=== PATIENT | female | born 1985 | race American Indian/Alaskan Native ===

== ENCOUNTER 2017-11-04 09:37 | Emergency (ER) | payer OTHER ==
[2017-11-04 09:48] VITALS: BP 148/85
[2017-11-04 10:34] LABS: Basophils % (Auto) 0.5 % (0.0-1.8); Eosinophils % (Auto) 0.3 % (0.0-4.3); Hematocrit 38.5 % (30.3-42.9); Hemoglobin 12.8 gm/dl (10.1-14.3); Lymphocytes # (Auto) 0.3 K/mm3 (1.2-5.4); Mean Corpuscular HGB Conc 33 % (30-34); Mean Corpuscular Hemoglobin 26 pg (28-32); Mean Corpuscular Volume 79 fl (79-97); Monocytes # (Auto) 0.3 K/mm3 (0.0-0.8); Monocytes % (Auto) 5.2 % (0.0-7.3); Platelet Count 220 K/mm3 (140-440); Red Blood Count 4.88 M/mm3 (3.65-5.03); Red Cell Distribution Width 16.1 % (13.2-15.2)
[2017-11-04 10:41] LABS: Alanine Aminotransferase 11 units/L (7-56); Albumin 3.9 g/dL (3.9-5); BUN/Creatinine Ratio 17; Blood Urea Nitrogen 10 mg/dL (7-17); Calcium 8.9 mg/dL (8.4-10.2); Hemolysis Index 13; Lipase 18 units/L (13-60)
[2017-11-04 11:22] LABS: HCG Qualitative,Urine Negative (Negative)
[2017-11-04 11:25] LABS: Bilirubin,Urine NEG (Negative); Blood,Urine NEG (Negative); Color,Urine Yellow (Yellow); Mucus,Urine FEW /HPF; Protein,Urine <15 mg/dL mg/dL (Negative); Urobilinogen,Urine < 2.0 mg/dL (<2.0)
[2017-11-04] MEDS ORDERED: ZOFRAN ODT PO ONE (12:20)
[2017-11-04] MEDS ORDERED: ZOFRAN ODT ONE (12:20)
--- NOTE | 2017-11-04 12:24 | Emergency Department Report ---
Vomiting/Diarrhea - HPI Chief Complaint: Nausea/Vomiting/Diarrhea Stated Complaint: VOMITING Time Seen by Provider: 11/04/17 12:07 Duration: Today Severity: moderate Nausea/Vomiting Severity: Moderate Diarrhea Severity: Mild Pain Location: Generalized Pain Severity: Mild Symptoms: Yes Watery Diarrhea, Yes Able to Tolerate Fluids, No Bloody diarrhea, No Fever, No Recent Unusual Foods, No Recent Untreated Water, No Recent use of Antibiotics, No Family w/ Similar Symptoms, No Contacts w/ Similar Symptoms, No Rash, No Hematuria, No Recent URI Symptoms ED Review of Systems ROS: Stated complaint: VOMITING Other details as noted in HPI Comment: All other systems reviewed and negative ED Past Medical Hx - Past Medical History Previous Medical History?: Yes Additional medical history: Childbirth - Surgical History Past Surgical History?: Yes Additional Surgical History: x 1 - Social History Smoking Status: Never Smoker Substance Use Type: None - Medications Home Medications: Home Medications Medication Instructions Recorded Confirmed Last Taken Type Ondansetron [Zofran ODT TAB] 4 mg PO Q8HR PRN #10 tab.rapdis 11/04/17 Unknown Rx Vomiting Diarrhea Exam - Exam General: Vital signs noted. No distress. Alert and acting appropriately. HEENT: Yes Moist Mucous Membranes, No Pharyngeal Erythema, No Pharyngeal Exudates, No Rhinorrhea, No Conjuctival Injection, No Frontal Tenderness, No Maxillary Tenderness Neck: No Adenopathy, No Rigidity Lungs: Yes Clear Lung Sounds, Yes Good Air Exchange, No Wheezes, No Stridor, No Cough, No Nasal Flaring, No Retractions, No Use of Accessory Muscles Heart exam: Regular: Yes, Murmur: No, Tachycardia: No Abdomen: Tenderness: No, Peritoneal Signs: No, Distention: No, Hyperactive Bowel sounds: No Skin exam: Rash: No, Edema: No, Normal turgor: Yes Neurologic: Alert and oriented, no deficits. Musculoskeletal: Unremarkable. ED Course Vital Signs 11/04/17 09:45 Temperature 98.7 F Pulse Rate 104 H Respiratory 20 Rate Blood Pressure 148/85 O2 Sat by Pulse 96 Oximetry ED Medical Decision Making - Lab Data Result diagrams: 11/04/17 10:17 11/04/17 10:17 Lab Results 11/04/17 11/04/17 11/04/17 Range/Units 10:17 10:17 10:53 WBC 5.9 (4.5-11.0) K/mm3 RBC 4.88 (3.65-5.03) M/mm3 Hgb 12.8 (10.1-14.3) gm/dl Hct 38.5 (30.3-42.9) % MCV 79 (79-97) fl MCH 26 L (28-32) pg MCHC 33 (30-34) % RDW 16.1 H (13.2-15.2) % Plt Count 220 (140-440) K/mm3 Lymph % (Auto) 5.0 L (13.4-35.0) % Hampton % (Auto) 5.2 (0.0-7.3) % Eos % (Auto) 0.3 (0.0-4.3) % Baso % (Auto) 0.5 (0.0-1.8) % Lymph # 0.3 L (1.2-5.4) K/mm3 Hampton # 0.3 (0.0-0.8) K/mm3 Eos # 0.0 (0.0-0.4) K/mm3 Baso # 0.0 (0.0-0.1) K/mm3 Seg Neutrophils % 89.0 H (40.0-70.0) % Seg Neutrophils # 5.2 (1.8-7.7) K/mm3 Sodium 133 L (137-145) mmol/L Potassium 4.1 (3.6-5.0) mmol/L Chloride 97.6 L (98-107) mmol/L Carbon Dioxide 23 (22-30) mmol/L Anion Gap 17 mmol/L BUN 10 (7-17) mg/dL Creatinine 0.6 L (0.7-1.2) mg/dL Estimated GFR > 60 ml/min BUN/Creatinine Ratio 17 % Glucose 100 (65-100) mg/dL Calcium 8.9 (8.4-10.2) mg/dL Total Bilirubin 0.70 (0.1-1.2) mg/dL AST 18 (5-40) units/L ALT 11 (7-56) units/L Alkaline Phosphatase 59 (35-129) units/L Total Protein 7.8 (6.3-8.2) g/dL Albumin 3.9 (3.9-5) g/dL Albumin/Globulin Ratio 1.0 % Lipase 18 (13-60) units/L Urine Color Yellow (Yellow) Urine Turbidity Clear (Clear) Urine pH 7.0 (5.0-7.0) Ur Specific Marvin 1.020 (1.003-1.030) Urine Protein <15 mg/dl (Negative) mg/dL Urine Glucose (UA) Neg (Negative) mg/dL Urine Ketones Neg (Negative) mg/dL Urine Blood Neg (Negative) Urine Nitrite Neg (Negative) Ur Reducing Substances Not Reportable Urine Bilirubin Neg (Negative) Urine Ictotest Not Reportable Urine Urobilinogen < 2.0 (<2.0) mg/dL Ur Leukocyte Esterase Tr (Negative) Urine WBC (Auto) 1.0 (0.0-6.0) /HPF Urine RBC (Auto) 1.0 (0.0-6.0) /HPF U Epithel Cells (Auto) 3.0 (0-13.0) /HPF Urine Mucus Few /HPF Urine HCG, Qual Negative (Negative) - Medical Decision Making Patient is a 32-year-old black female who is presenting with nausea vomiting diarrhea. Patient has a normal physical exam vital signs within normal limits. Lipitor studies are unremarkable. The patient most likely has a viral gastroenteritis and be discharged home with meds for symptomatic relief. Critical care attestation.: If time is entered above; I have spent that time in minutes in the direct care of this critically ill patient, excluding procedure time. ED Disposition Clinical Impression: Gastroenteritis Disposition: DC-01 TO HOME OR SELFCARE Is pt being admited?: No Does the pt Need Aspirin: No Condition: Stable Instructions: Gastroenteritis (ED) Prescriptions: Ondansetron [Zofran ODT TAB] 4 mg PO Q8HR PRN #10 tab.rapdis PRN Reason: Nausea Referrals: MACY HERNANDEZ MD [Staff Physician] - 3-5 Days Forms: Work/School Release Form(ED)
== END 2017-11-04 12:28 | disposition home or self-care (01) ==
LOC: ED 09:37
DX: K52.9 Noninfective gastroenteritis and colitis, unspecified (principal)
CPT/HCPCS: 36415; 80053; 81001; 81025; 83690; 85025; 99283; Q0162

== ENCOUNTER 2017-11-22 23:31 | Emergency (ER) | payer OTHER ==
[2017-11-23 00:58] VITALS: BP 151/88
[2017-11-23 02:09] LABS: Bilirubin,Urine NEG (Negative); Blood,Urine NEG (Negative); Color,Urine Yellow (Yellow); Mucus,Urine FEW /HPF; Protein,Urine <15 mg/dL mg/dL (Negative); Urobilinogen,Urine < 2.0 mg/dL (<2.0); WBC,Urine < 1.0 /HPF (0.0-6.0)
[2017-11-23 02:15] LABS: HCG Qualitative,Urine Negative (Negative)
[2017-11-23] MEDS ORDERED: ZOFRAN ODT PO ONE (04:48)
[2017-11-23] MEDS ORDERED: TYLENOL PO ONE (04:48)
--- NOTE | 2017-11-23 04:56 | Emergency Department Report ---
ED Headache HPI - General Chief Complaint: Headache Stated Complaint: HEADACHE Time Seen by Provider: 11/23/17 04:48 - History of Present Illness Initial Comments: 32-year-old -[place] female comes in complaining of headache since yesterday approximately 3 PM. Patient pushes taken aspirin and Goody powders Advil with no result of pain. She looks reports it is located in her frontal behind her eyes to the back of the neck feels like a band. Patient admits to nausea no vomiting headache is very sensitive to touch certain movements make it worse she reports it feels like a voltage gone in her head. She admits to chills no fever. No past medical history currently takes no medications on a daily basis Timing/Duration: other (3 PM on Thursday) Quality: severe, other (feels like voltage this intermittent) Head Injury Location: frontal, temporal, occipital Recent Head Trauma: no recent headache/trauma Modifying Factors: improves with: movement Associated Symptoms: fever/chills (chills), nausea/vomiting Allergies/Adverse Reactions: Allergies No Known Allergies Allergy (Unverified 11/04/17 09:44) Home Medications: Ambulatory Orders Ondansetron [Zofran ODT TAB] 4 mg PO Q8HR PRN #10 tab.rapdis 11/04/17 Ibuprofen [Motrin 800 MG tab] 800 mg PO Q8HR #30 tablet 11/23/17 ED Review of Systems ROS: Stated complaint: HEADACHE Other details as noted in HPI ED Past Medical Hx - Past Medical History Previous Medical History?: No Additional medical history: Childbirth - Surgical History Past Surgical History?: Yes Additional Surgical History: x 1, hernia - Social History Smoking Status: Never Smoker Substance Use Type: None - Medications Home Medications: Home Medications Medication Instructions Recorded Confirmed Last Taken Type Ondansetron [Zofran ODT TAB] 4 mg PO Q8HR PRN #10 tab.rapdis 11/04/17 Unknown Rx Ibuprofen [Motrin 800 MG tab] 800 mg PO Q8HR #30 tablet 11/23/17 Unknown Rx ED Physical Exam - General Limitations: No Limitations ED Course Vital Signs 11/23/17 00:56 Temperature 98.9 F Pulse Rate 105 H Respiratory 17 Rate Blood Pressure 151/88 O2 Sat by Pulse 99 Oximetry ED Medical Decision Making - Radiology Data Radiology results: report reviewed, image reviewed FINAL REPORT PROCEDURE: CT HEAD/BRAIN WO CON TECHNIQUE: Computerized tomography of the head was performed without contrast material. HISTORY: worst headache COMPARISON: No prior studies are available for comparison. FINDINGS: Skull and scalp: Normal. Paranasal sinuses: Normal. Ventricles and subarachnoid spaces: Normal. Cerebrum: No evidence of hemorrhage, acute infarction or mass . Cerebellum and brainstem: No evidence of hemorrhage, acute infarction or mass. Vasculature: Normal. Comments: None. IMPRESSION: Normal Examination Transcribed By: CO Dictated By: NUNO GARCIA MD Electronically Authenticated By: NUNO GARCIA MD Signed Date/Time: 11/23/17622 DD/ 2 TD/TT: 11/23/17622 - Medical Decision Making Patient has been evaluated by this provider fast track. Patient is given Zofran ODT. Tylenol [address] of head without contrast. CT result back shows normal examination. I will give patient ibuprofen 800 mg and have her follow up with her primary care provider. Critical care attestation.: If time is entered above; I have spent that time in minutes in the direct care of this critically ill patient, excluding procedure time. ED Disposition Clinical Impression: Headache Qualifiers: Headache type: tension-type Headache chronicity pattern: acute headache Intractability: intractable Qualified Code(s): G44.201 - Tension-type headache, unspecified, intractable Disposition: DC-01 TO HOME OR SELFCARE Is pt being admited?: No Does the pt Need Aspirin: No Condition: Stable Instructions: Acute Headache (ED) Additional Instructions: Please take ibuprofen for headache. Please follow-up with her primary care provider I have listed one below for your convenience. Prescriptions: Ibuprofen [Motrin 800 MG tab] 800 mg PO Q8HR #30 tablet Referrals: PRIMARY MD EDGARDO [Primary Care Provider] - 3-5 Days [facility] [Provider Group] - 3-5 Days Forms: Work/School Release Form(ED)
--- NOTE | 2017-11-23 06:29 | Cat Scan Report ---
FINAL REPORT PROCEDURE: CT HEAD/BRAIN WO CON TECHNIQUE: Computerized tomography of the head was performed without contrast material. HISTORY: worst headache COMPARISON: No prior studies are available for comparison. FINDINGS: Skull and scalp: Normal. Paranasal sinuses: Normal. Ventricles and subarachnoid spaces: Normal. Cerebrum: No evidence of hemorrhage, acute infarction or mass . Cerebellum and brainstem: No evidence of hemorrhage, acute infarction or mass. Vasculature: Normal. Comments: None. IMPRESSION: Normal Examination
[2017-11-23] MEDS ORDERED: MOTRIN PO ONE (06:35)
== END 2017-11-23 07:08 | disposition home or self-care (01) ==
LOC: ED 23:31
DX: G44.201 Tension-type headache, unspecified, intractable (principal)
CPT/HCPCS: 70450; 81001; 81025; Q0162

== ENCOUNTER 2018-02-15 11:36 | Emergency (ER) | payer SELFPAY ==
[2018-02-15 11:59] VITALS: BP 152/78
[2018-02-15] MEDS ORDERED: TORADOL IM ONE (13:37)
--- NOTE | 2018-02-15 13:37 | Emergency Department Report ---
ED Headache HPI - General Chief Complaint: Headache Stated Complaint: MIGRANE Time Seen by Provider: 02/15/18 13:31 - History of Present Illness Initial Comments: Patient is a 32-year-old female presenting with migraine headache. Patient states it is hurting off and on for the past several months. Patient has not seen a neurologist. Patient says is light sensitivity. Patient states aching pain throbbing is 8 out of 10 in severity. Patient denies any fevers or neck stiffness at this time. Allergies/Adverse Reactions: Allergies No Known Allergies Allergy (Unverified 11/04/17 09:44) Home Medications: Ambulatory Orders Ondansetron [Zofran ODT TAB] 4 mg PO Q8HR PRN #10 tab.rapdis 11/04/17 Ibuprofen [Motrin 800 MG tab] 800 mg PO Q8HR #30 tablet 11/23/17 Butalb/Acetamin/Caff 50-325-40 [Fioricet] 1 tab PO Q6HR PRN #12 tab 02/15/18 ED Review of Systems ROS: Stated complaint: MIGRANE Other details as noted in HPI Comment: All other systems reviewed and negative ED Past Medical Hx - Past Medical History Hx Headaches / Migraines: Yes Additional medical history: Childbirth - Surgical History Additional Surgical History: x 1, hernia - Social History Smoking Status: Never Smoker Substance Use Type: None - Medications Home Medications: Home Medications Medication Instructions Recorded Confirmed Last Taken Type Ondansetron [Zofran ODT TAB] 4 mg PO Q8HR PRN #10 tab.rapdis 11/04/17 Unknown Rx Ibuprofen [Motrin 800 MG tab] 800 mg PO Q8HR #30 tablet 11/23/17 Unknown Rx Butalb/Acetamin/Caff 50-325-40 1 tab PO Q6HR PRN #12 tab 02/15/18 Unknown Rx [Fioricet] ED Physical Exam - General Limitations: No Limitations General appearance: alert, in no apparent distress - Head Head exam: Present: atraumatic, normocephalic - Eye Eye exam: Present: normal appearance - ENT ENT exam: Present: mucous membranes moist - Neck Neck exam: Present: normal inspection - Respiratory Respiratory exam: Present: normal lung sounds bilaterally. Absent: respiratory distress - Cardiovascular Cardiovascular Exam: Present: regular rate, normal rhythm. Absent: systolic murmur, diastolic murmur, rubs, gallop - GI/Abdominal GI/Abdominal exam: Present: soft, normal bowel sounds - Extremities Exam Extremities exam: Present: normal inspection - Back Exam Back exam: Present: normal inspection - Neurological Exam Neurological exam: Present: alert, oriented X3 - Psychiatric Psychiatric exam: Present: normal affect, normal mood - Skin Skin exam: Present: warm, dry, intact, normal color. Absent: rash ED Course Vital Signs 02/15/18 11:56 Temperature 98.8 F Pulse Rate 76 Respiratory 18 Rate Blood Pressure 152/78 O2 Sat by Pulse 99 Oximetry Critical care attestation.: If time is entered above; I have spent that time in minutes in the direct care of this critically ill patient, excluding procedure time. ED Disposition Clinical Impression: Migraine Qualifiers: Migraine type: unspecified Status migrainosus presence: without status migrainosus Intractability: not intractable Qualified Code(s): G43.909 - Migraine, unspecified, not intractable, without status migrainosus Disposition: DC- TO HOME OR SELFCARE Is pt being admited?: No Does the pt Need Aspirin: No Condition: Stable Prescriptions: Butalb/Acetamin/Caff 50-325-40 [Fioricet] 1 tab PO Q6HR PRN #12 tab PRN Reason: Headache Referrals: WILL NOGUERA MD [Referring] - 3-5 Days
== END 2018-02-15 14:07 | disposition home or self-care (01) ==
LOC: ED 11:36
DX: G43.909 Migraine, unspecified, not intractable, without status migrainosus (principal)
CPT/HCPCS: 96372; 99282; J1885

== ENCOUNTER → 2019-06-08 | Emergency (ER) | payer SELFPAY ==
[~2019-06-08] MED LIST: ACETAMINOPHEN 325 MG TAB PO PRN; ASPIRIN 325 MG TAB PO ONE; ASPIRIN 81 MG TAB CHEW ONE; ASPIRIN 81 MG TAB CHEW PO SCH; ENOXAPARIN 40 MG/0.4 ML INJ SUB-Q SCH; MAGNESIUM HYDROXIDE (MOM) ORAL LIQD UDC PO PRN; METOCLOPRAMIDE 10 MG TAB PO PRN; ONDANSETRON 4 MG/2 ML INJ IV ONE; ONDANSETRON 4 MG/2 ML INJ IV PRN; ONDANSETRON 4 MG/2 ML INJ ONE; SODIUM CHLORIDE 0.9% 1000 ML 1,000 ML IV SCH
--- NOTE | 2019-06-08 22:17 | Consultation ---
History of Present Illness Consult date: 06/08/19 History of present illness: [facility] Date of Service:06/08/2019 21:38:07 Impression: RO Acute Ischemic Stroke Comments: left arm numbness in settings of new onset marijuana use, R/O stroke Metrics: Last Known Well: 06/07/2019 21:00:00 [employer] Notification Time: 06/08/2019 01:37:18 Arrival Time: 06/08/2019 21:55:00 Stamp Time: 06/08/2019 21:38:07 Time First Login Attempt: 06/08/2019 21:45:00 Video Start Time: 06/08/2019 21:45:00 Symptoms: left arm numbness, not feeling well. NIHSS Start Assessment Time: 06/08/2019 22:09:10 Patient is not a candidate for tPA. Patient was not deemed candidate for tPA thrombolytics because of Last Well Known Above 4.5 Hours. Video End Time: 06/08/2019 22:13:59 CT head showed no acute hemorrhage or acute core infarct. Advanced imaging was not obtained as the presentation was not suggestive of Large Vessel Occlusive Disease. Radiologist was not called back for review of advanced imaging because not obtained ER Physician notified of the decision on thrombolytics management on 06/08/2019 22:15:25 Our recommendations are outlined below. Recommendations: Activate Stroke Protocol Admission/Order Set Stroke/Telemetry Floor Neuro Checks Bedside Swallow Eval DVT Prophylaxis IV Fluids, Normal Saline Head of Bed Below 30 Degrees Euglycemia and Avoid Hyperthermia (PRN Acetaminophen) Initiate Aspirin 81 MG Daily tox screen Recommended Scan: MRI Head Lipid Panel to Be Obtained, if Not Done in the Last Three Months Therapies: Physical Therapy, Occupational Therapy, Speech Therapy Assessment When Applicable Dysphaghia Screen: Swallow Evaluation, Bedside DVT prophylaxis: Choice of Primary Team Disposition: Follow up with Teleneurology Follow up Sign Out: Discussed with Emergency Department Provider History of Present Illness: Patient is a 34 year old Female. Patient was brought by EMS for symptoms of left arm numbness, not feeling well. 34 YO F with no siginificant PMH presented with left arm numbness and multiple other symptoms. she states that she smoked weed yesterday for the first time and since then she has not been feeling well. She was feeling nauseated, pain in the right eye. when she woke up this morning she was feeling dizzy and uncoordinated and her mouth was twitching. Later in the afternoon she started having left arm numbness and EMS was called. she reports generalized weakness. CT head showed no acute hemorrhage or acute core infarct. Examination: 1A: Level of Consciousness - Alert; keenly responsive+ 0 1B: Ask Month and Age - Both Questions Right+ 0 1C: Blink Eyes & Squeeze Hands - Performs Both Tasks+ 0 2: Test Horizontal Extraocular Movements - Normal+ 0 3: Test Visual Johnson - No Visual Loss+ 0 4: Test Facial Palsy (Use Grimace if Obtunded) - Normal symmetry+ 0 5A: Test Left Arm Motor Drift - No Drift for 10 Seconds+ 0 5B: Test Right Arm Motor Drift - No Drift for 10 Seconds+ 0 6A: Test Left Leg Motor Drift - No Drift for 5 Seconds+ 0 6B: Test Right Leg Motor Drift - No Drift for 5 Seconds+ 0 7: Test Limb Ataxia (FNF/Heel-Cardenas) - No Ataxia+ 0 8: Test Sensation - Mild-Moderate Loss: Less Sharp/More Dull+ 1 9: Test Language/Aphasia - Normal; No aphasia+ 0 10: Test Dysarthria - Normal+ 0 11: Test Extinction/Inattention - No abnormality+ 0 NIHSS Score:1 Patient was informed the Neurology Consult would happen via TeleHealth consult by way of interactive audio and video telecommunications and consented to receiving care in this manner. Due to the immediate potential for life-threatening deterioration due to underlying acute neurologic illness, I spent 35 minutes providing critical care. This time includes time for face to face visit via telemedicine, review of medical records, imaging studies and discussion of findings with providers, the patient and/or family. Dr Jeff Jarrell [facility] Medications and Allergies Allergies Allergy/AdvReac Type Severity Reaction Status Date / Time No Known Allergies Allergy Unverified 11/04/17 09:44 Home Medications Medication Instructions Recorded Confirmed Last Taken Type Ondansetron [Zofran ODT TAB] 4 mg PO Q8HR PRN #10 tab.rapdis 11/04/17 Unknown Rx Ibuprofen [Motrin 800 MG tab] 800 mg PO Q8HR #30 tablet 11/23/17 Unknown Rx Butalb/Acetamin/Caff 50-325-40 1 tab PO Q6HR PRN #12 tab 02/15/18 Unknown Rx [Fioricet]
--- NOTE | 2019-06-08 22:21 | Cat Scan Report ---
NONENHANCED CT SCAN OF THE BRAIN: INDICATION: neuro deficits <6hrs or sx present upon awakening. TECHNIQUE: Routine CT head without contrast. Sagittal and coronal reformatted images were obtained. A ll CT scans at this location are performed using CT dose reduction for ALARA by means of automated ex posure control. COMPARISON: None. FINDINGS: BRAIN / INTRACRANIAL CONTENTS: Hemorrhage:No intracranial hemorrhage; no subarachnoid hemorrhage Stroke mimics: No subdural or epidural hematoma or space taking lesion Acute/subacute territorial infarction: Green-white matter interface: No blurring; normal Insular cortex: Normal Basal ganglia: Normal Wedge shaped parenchymal low density area: Not present Cortical sulci: Not effaced Lacunar infarctions: None Vasculopathy: Dense middle cerebral artery sign: Not present Internal carotid artery terminus: Normal Basilar artery:Normal Middle cerebral artery branches in the sylvian fissure (Dot sign): Normal Calcified embolus: Not present Chronic lesions:None White matter: Normal Craniocervical junction:No significant abnormality Orbits:No significant abnormality Paranasal sinuses/mastoids:No significant abnormality Additional findings: None IMPRESSION: No acute subacute infarction This exam was performed as part of a code stroke protocol. The exam was completed on 06/08/2019 9:12 PM. The exam was reviewed at 9:16 PM Central standard time and ER physician was notified at 9:18 PM C entral standard time. Signer Name: Singh Travis MD Signed: 06/08/2019 10:17 PM Workstation Name: [id number]
--- NOTE | 2019-06-08 22:38 | Emergency Department Report ---
HPI - General Chief Complaint: Neuro Symptoms/Deficit Time Seen by Provider: 06/08/19 22:18 - HPI HPI: Room 26 The pt is a 34 y/o F p/w a cc of Left sided numbness and dysarthria. The pt states last night she developed pain and blurred vision in her right eye. The pt states she went to sleep and when she awakened, she developed nausea and felt disoriented. The pt states she went to work. At 16:00 today while leaving work she states her LUE became numb and week. She states this numbness/weakness was intermittent. The pt states at home after eating she had an episode of n/v. At 16:30 her LUE and LLE became numb and weak. The pt states at 21:00 she developed difficulty speaking prompting her to call EMS. The pt now c/o slight numbness to the LUE. ED Past Medical Hx - Past Medical History Hx Headaches / Migraines: Yes Additional medical history: Childbirth - Surgical History Additional Surgical History: x 1, hernia - Family History Family history: no significant - Social History Smoking Status: Never Smoker Substance Use Type: Alcohol (rarely), Marijuana - Medications Home Medications: Home Medications Medication Instructions Recorded Confirmed Last Taken Type Ondansetron [Zofran ODT TAB] 4 mg PO Q8HR PRN #10 tab.rapdis 11/04/17 Unknown Rx Ibuprofen [Motrin 800 MG tab] 800 mg PO Q8HR #30 tablet 11/23/17 Unknown Rx Butalb/Acetamin/Caff 50-325-40 1 tab PO Q6HR PRN #12 tab 02/15/18 Unknown Rx [Fioricet] ED Review of Systems ROS: Stated complaint: LEFT SIDE NUMBNESS Other details as noted in HPI Constitutional: no symptoms reported Eyes: eye pain, vision change ENT: denies: throat pain Respiratory: shortness of breath Cardiovascular: denies: chest pain Endocrine: no symptoms reported Gastrointestinal: nausea, vomiting Genitourinary: denies: dysuria Musculoskeletal: denies: back pain Neurological: headache, weakness, numbness Physical Exam - Physical Exam Vital Signs: Vital Signs 06/08/19 22:01 Respiratory 16 Rate Blood Pressure 168/96 O2 Sat by Pulse 97 Oximetry Physical Exam: GEN: WD WD F sitting on stretcher in NAD HEENT: EOMI, NCAT NECK: Trachea midline, no stridor CV: rrr no m/r/g PULM: CTA bilat, no resp distress ABD: S/NT/ND +BS SKIN: No diaphoresis NEURO: GCS 15, CN 2-12 GI no drift MS: no ED Course Vital Signs 06/08/19 22:01 Respiratory 16 Rate Blood Pressure 168/96 O2 Sat by Pulse 97 Oximetry ED Medical Decision Making - Lab Data Result diagrams: 06/08/19 22:33 06/08/19 22:33 Lab Results 06/08/19 06/08/19 06/08/19 Range/Units 22:33 22:33 22:33 WBC 7.9 (4.5-11.0) K/mm3 RBC 4.60 (3.65-5.03) M/mm3 Hgb 12.5 (10.1-14.3) gm/dl Hct 36.9 (30.3-42.9) % MCV 80 (79-97) fl MCH 27 L (28-32) pg MCHC 34 (30-34) % RDW 15.0 (13.2-15.2) % Plt Count 261 (140-440) K/mm3 Lymph % (Auto) 31.5 (13.4-35.0) % Ray % (Auto) 9.6 H (0.0-7.3) % Eos % (Auto) 1.3 (0.0-4.3) % Baso % (Auto) 1.1 (0.0-1.8) % Lymph # 2.5 (1.2-5.4) K/mm3 Ray # 0.8 (0.0-0.8) K/mm3 Eos # 0.1 (0.0-0.4) K/mm3 Baso # 0.1 (0.0-0.1) K/mm3 Seg Neutrophils % 56.5 (40.0-70.0) % Seg Neutrophils # 4.5 (1.8-7.7) K/mm3 PT 13.3 (12.2-14.9) Sec. INR 1.02 (0.87-1.13) APTT 26.5 (24.2-36.6) Sec. Thrombin Time (15.1-19.6) Sec. Sodium 139 (137-145) mmol/L Potassium 3.8 (3.6-5.0) mmol/L Chloride 106.2 (98-107) mmol/L Carbon Dioxide 23 (22-30) mmol/L Anion Gap 14 mmol/L BUN 6 L (7-17) mg/dL Creatinine 0.9 (0.7-1.2) mg/dL Estimated GFR > 60 ml/min BUN/Creatinine Ratio 7 % Glucose 105 H (65-100) mg/dL Calcium 8.5 (8.4-10.2) mg/dL Troponin T < 0.010 (0.00-0.029) ng/mL 06/08/19 Range/Units 22:33 WBC (4.5-11.0) K/mm3 RBC (3.65-5.03) M/mm3 Hgb (10.1-14.3) gm/dl Hct (30.3-42.9) % MCV (79-97) fl MCH (28-32) pg MCHC (30-34) % RDW (13.2-15.2) % Plt Count (140-440) K/mm3 Lymph % (Auto) (13.4-35.0) % Ray % (Auto) (0.0-7.3) % Eos % (Auto) (0.0-4.3) % Baso % (Auto) (0.0-1.8) % Lymph # (1.2-5.4) K/mm3 Ray # (0.0-0.8) K/mm3 Eos # (0.0-0.4) K/mm3 Baso # (0.0-0.1) K/mm3 Seg Neutrophils % (40.0-70.0) % Seg Neutrophils # (1.8-7.7) K/mm3 PT (12.2-14.9) Sec. INR (0.87-1.13) APTT (24.2-36.6) Sec. Thrombin Time 15.0 L (15.1-19.6) Sec. Sodium (137-145) mmol/L Potassium (3.6-5.0) mmol/L Chloride (98-107) mmol/L Carbon Dioxide (22-30) mmol/L Anion Gap mmol/L BUN (7-17) mg/dL Creatinine (0.7-1.2) mg/dL Estimated GFR ml/min BUN/Creatinine Ratio % Glucose (65-100) mg/dL Calcium (8.4-10.2) mg/dL Troponin T (0.00-0.029) ng/mL - EKG Data -: EKG Interpreted by Me EKG shows normal: sinus rhythm Rate: normal - EKG Data When compared to previous EKG there are: previous EKG unavailable Interpretation: normal EKG - Radiology Data Radiology results: report reviewed (ct head), image reviewed (ct head) Findings [facility] [address] [place] [address] Cat Scan Report Signed Patient: KAREN DUNCAN MR#: [id number] : 1985 Acct:[id number] Age/Sex: 34 / F ADM Date: 06/08/19 Loc: ED Attending Dr: Ordering Physician: VIVEK RIOS MD Date of Service: 06/08/19 Procedure(s): CT head/brain wo con Accession Number(s): [id number] cc: VIVEK RIOS MD NONENHANCED CT SCAN OF THE BRAIN: INDICATION: neuro deficits <6hrs or sx present upon awakening. TECHNIQUE: Routine CT head without contrast. Sagittal and coronal reformatted images were obtained. All CT scans at this location are performed using CT dose reduction for ALARA by means of automated exposure control. COMPARISON: None. FINDINGS: BRAIN / INTRACRANIAL CONTENTS: Hemorrhage:No intracranial hemorrhage; no subarachnoid hemorrhage Stroke mimics: No subdural or epidural hematoma or space taking lesion Acute/subacute territo rial infarction: Green-white matter interface: No blurring; normal Insular cortex: Normal Basal ganglia: Normal Wedge shaped parenchymal low density area: Not present Cortical sulci: Not effaced Lacunar infarctions: None Vasculopathy: Dense middle cerebral artery sign: Not present Internal carotid artery terminus: Normal Basilar artery:Normal Middle cerebral artery branches in the sylvian fissure (Dot sign): Normal Calcified embolus: Not present Chronic lesions:None White matter: Normal Craniocervical junction:No significant abnormality Orbits:No significant abnormality Paranasal sinuses/mastoids:No significant abnormality Additional findings: None IMPRESSION: No acute subacute infarction This exam was performed as part of a code stroke protocol. The exam was completed on 06/08/2019 9:12 PM. The exam was reviewed at 9:16 PM Central standard time and ER physician was notified at 9:18 PM Central standard time. Signer Name: Singh Travis MD Signed: 06/08/2019 10:17 PM Workstat ion Name: DELON Transcribed By: BS Dictated By: Singh Seay MD Electronically Authenticated By: Singh Seay MD Signed Date/Time: 06/08/192216 DD/ 11 TD/TT: - Differential Diagnosis MS, CVA, TIAs Critical care attestation.: If time is entered above; I have spent that time in minutes in the direct care of this critically ill patient, excluding procedure time. ED Disposition Clinical Impression: Left sided numbness Disposition: DC- OP ADMIT IP TO THIS HOSP Is pt being admited?: Yes Does the pt Need Aspirin: Yes Condition: Fair Time of Disposition: 23:21 (Hospitalist paged (Dr Christel Maradiaga))
[2019-06-08 22:48] LABS: Basophils # (Auto) 0.1 K/mm3 (0.0-0.1); Basophils % (Auto) 1.1 % (0.0-1.8); Eosinophils # (Auto) 0.1 K/mm3 (0.0-0.4); Eosinophils % (Auto) 1.3 % (0.0-4.3); Hematocrit 36.9 % (30.3-42.9); Hemoglobin 12.5 gm/dl (10.1-14.3); Lymphocytes # (Auto) 2.5 K/mm3 (1.2-5.4); Lymphocytes % (Auto) 31.5 % (13.4-35.0); Mean Corpuscular HGB Conc 34 % (30-34); Mean Corpuscular Volume 80 fl (79-97); Monocytes # (Auto) 0.8 K/mm3 (0.0-0.8); Monocytes % (Auto) 9.6 % (0.0-7.3); Platelet Count 261 K/mm3 (140-440)
[2019-06-08 22:59] LABS: INR 1.02 (0.87-1.13); Partial Thromboplastin Time 26.5 Sec. (24.2-36.6)
[2019-06-08 23:06] LABS: BUN/Creatinine Ratio 7; Blood Urea Nitrogen 6 mg/dL (7-17); Calcium 8.5 mg/dL (8.4-10.2); Hemolysis Index 2
[2019-06-09 00:10] LABS: HCG Qualitative,Urine Negative (Negative)
[2019-06-09 00:15] LABS: Amphetamine Screen,Urine PRESUMPTIVE NEGATIVE; Benzodiazepines Screen,Urine PRESUMPTIVE NEGATIVE; Cannabinoid Screen,Urine PRESUMPTIVE NEGATIVE; Cocaine Screen,Urine PRESUMPTIVE NEGATIVE; Methadone Screen,Urine PRESUMPTIVE NEGATIVE; Opiate Screen,Urine PRESUMPTIVE NEGATIVE
--- NOTE | 2019-06-09 00:15 | Event Note ---
Date: 06/09/19 Pt presented to ED with complaints of left sided weakness and dysarthria. CT Head negative. She was assessed by Tele-neurology with recommendations for further evaluation and inpatient neurology. Pt left AMA before being assessed.
[2019-06-09 00:16] VITALS: BP 142/90
== END | disposition admitted as inpatient to this hospital (09) ==
LOC: ED 21:55
DX: R20.0 Anesthesia of skin (principal); R47.1 Dysarthria and anarthria; H53.8 Other visual disturbances; F12.10 Cannabis abuse, uncomplicated; Z79.899 Other long term (current) drug therapy
CPT/HCPCS: 36415; 70450; 80048; 80307; 81025; 84484; 85025; 85610; 85670; 85730; 93005; 93010; 96374; 99285; J2405

== ENCOUNTER 2022-04-18 14:40 | Outpatient (CLI) | payer BC ==
[2022-04-18 15:18] VITALS: BP 139/89
--- NOTE | 2022-04-18 17:06 | Ultrasound Report ---
ULTRASOUND OBSTETRIC LIMITED ULTRASOUND BIOPHYSICAL PROFILE INDICATION / CLINICAL INFORMATION: BPP/SONIA. COMPARISON: None available. FINDINGS: BREATHING MOVEMENT = 2 GROSS BODY MOVEMENT = 2 TONE = 2 QUALITATIVE AMNIOTIC FLUID VOLUME = 2 TOTAL BIOPHYSICAL SCORE = 8/8 AMNIOTIC FLUID INDEX (cm) = 12.6 PRESENTATION: Cephalic. HEART RATE (beats per minute): 133 ADDITIONAL FINDINGS: None. IMPRESSION: 1. Biophysical Score = 8/8 Signer Name: Cecilio Romo MD Signed: 04/18/2022 5:02 PM Workstation Name: [email or web address]
== END 2022-04-18 16:07 | disposition home or self-care (01) ==
LOC: TRG 14:40 → APU 14:43 → TRG 16:07
PROVIDERS: ATTEND Obstetrics & Gynecology
DX: O36.8130 Decreased fetal movements, third trimester, not applicable or unspecified (principal); Z3A.37 37 weeks gestation of pregnancy
CPT/HCPCS: 59025; 76815; 76819